=== PATIENT | male | born 1930 | race Caucasian/White ===

== ENCOUNTER 2017-05-31 19:56 | Observation (INO) | payer MEDICARE ==
[~2017-05-31] VITALS: Ht 182.9 cm; Wt 88.1 kg
[~2017-05-31 19:56] MED LIST: BISO5TAB2 PO; CARD4TAB2 PO; FELO5TAB PO; LISI40TA PO; MEVA40TA6 PO; PREV30CA36 PO; SPIR25TA PO
[2017-05-31 20:10] VITALS: BP 188/77; PULSE 76; RESP 22; TEMP 100; O2SAT 83
[2017-05-31 20:32] VITALS: BP 158/55; PULSE 74; RESP 16; O2SAT 98
[2017-05-31] MEDS ORDERED: B-122000 PO (20:32)
[2017-05-31] MEDS ORDERED: LISI40TA PO (20:32)
[2017-05-31] MEDS ORDERED: MELO-1 PO (20:32)
[2017-05-31] MEDS ORDERED: AMLO5 PO (20:32)
[2017-05-31] MEDS ORDERED: SPIR25TA PO (20:32)
[2017-05-31 20:35] VITALS: BP 158/55; PULSE 73; RESP 16; O2SAT 98
[2017-05-31 20:43] VITALS: TEMP 100.9
[2017-05-31 20:44] VITALS: O2SAT 98
[2017-05-31] MEDS ORDERED: SODIUM CHLOR 0.9% 1000 ML INJ 1,000 ML IV SCH (20:45)
[2017-05-31] MEDS ORDERED: PIPERACIL-TAZO 4.5 GM PREMIX 100 ML IV ONE (20:45)
--- NOTE | 2017-05-31 20:47 | PD ---
HPI Chief Complaint: Fever Time Seen by Provider: 20:40 Travel History International Travel<30 days: No Contact w/Intl Traveler<30days: No Traveled to known affect area: No History of Present Illness HPI 87-year-old male presents to the emergency department by private vehicle the care of family for evaluation of generalized weakness with fever since yesterday. Patient reports history of recurrent urinary tract infection. Patient reports some nausea. Patient's had no vomiting and only one episode of loose stool/diarrhea. No hematemesis no coffee-ground emesis no melena hematochezia. Patient states he's had subjective fever and chills and does not know the actual temperature elevation. Patient's had no cough or shortness of breath. Patient has had some rhinorrhea but suffers from environmental and seasonal allergies. Patient reports he does take Flonase on a regular basis. Patient takes no blood thinning agents. Patient is treated for dyslipidemia and hypertension. Patient has been able take his medications as prescribed. Patient has been taking fluids well without difficulty. Patient denies any abdominal pain. Patient is status post remote appendectomy no other abdominal surgeries. Patient denies prior history of diverticulosis diverticulitis colitis or other intestinal issues. Patient denies any flank pain. Patient has noted some mild dysuria but no urgency frequency urine output or hematuria. Patient rates his overall discomfort as 0/10 in intensity. 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) Diminished Hearing: No GERD: Yes Glaucoma: No Hepatitis: No Hiatal Hernia: No Hypertension: Yes Medical other: Yes (GERD; ARTHRITIS) Immunizations Current: No Thyroid Disease: No Tetanus Vaccination: Unknown Influenza Vaccination: No ?: Not Past Surgical History Abdominal Surgery: Yes (APPENDECTOMY) Appendectomy: Yes (30 YEARS AGO) Neurologic Surgery: Yes ("spinal fusion c8 and c9") Pacemaker: No Tonsillectomy: Yes Other Surgery: Yes ("lymph removed from r.[place]" "skin cancer removed on arms") Social History Alcohol Use: No Tobacco Use: No Substance Use: No Allergies-Medications (Allergen,Severity, Reaction): Coded Allergies: Asparagus (Verified Allergy, Intermediate, DIARRHEA, 05/31/17) Demerol (Verified Allergy, Unknown, "don't know,it was on my records", ) Reported Meds & Prescriptions Reported Meds & Active Scripts Active Reported B-12 (Cyanocobalamin) 2,000 Mcg Tab 2,000 Mcg PO DAILY Meloxicam 15 Mg Tab 15 Mg PO DAILY Norvasc (Amlodipine Besylate) 5 Mg Tab 5 Mg PO DAILY Spironolactone 25 Mg Tab 25 Mg PO DAILY Lisinopril 40 Mg Tab 40 Mg PO DAILY Review of Systems Except as stated in HPI: all other systems reviewed are Neg General / Constitutional: Positive: Fever (subjective), Chills HENT: Positive: Congestion Cardiovascular: No: Chest Pain or Discomfort Respiratory: No: Cough, Shortness of Breath, Wheezing Gastrointestinal: Positive: Nausea, Diarrhea, No: Vomiting, Abdominal Pain ( times one) Genitourinary: Positive: Dysuria, No: Urgency, Frequency, Hematuria, Flank Pain Musculoskeletal: Positive: Myalgias, Arthralgias Skin: No Rash Neurologic: Positive: Weakness, No: Dizziness, Syncope, Focal Abnormalities, Coordination Problem Psychiatric: No: Anxiety Endocrine: No: Heat Intolerance Hematologic/Lymphatic: No: Easy Bruising Physical Exam Narrative GENERAL: Well-developed well-nourished male in no acute distress no respiratory distress; triage temperature 100F/100.9F SKIN: Warm and dry. HEAD: Normocephalic. EYES: No scleral icterus. No injection or drainage. NECK: Supple, trachea midline. No JVD or lymphadenopathy. CARDIOVASCULAR: Regular rate and rhythm without murmurs, gallops, or rubs. RESPIRATORY: Breath sounds equal bilaterally. No accessory muscle use. GASTROINTESTINAL: Abdomen soft, non-tender, nondistended. MUSCULOSKELETAL: No cyanosis, or edema. BACK: Nontender without obvious deformity. No CVA tenderness. Data Data Last Documented VS Vital Signs Date Time Temp Pulse Resp B/P Pulse Ox O2 Delivery O2 Flow Rate FiO2 05/31/17 21:56 99.9 67 18 140/58 98 Room Air Orders Complete Blood Count With Diff (05/31/17 20:40) Comprehensive Metabolic Panel (05/31/17 20:40) Lactic Acid Sepsis Protocol (05/31/17 20:40) Lipase (05/31/17 20:40) Urinalysis - C+S If Indicated (05/31/17 20:40) Blood Culture (05/31/17 20:40) Chest, Single Ap (05/31/17 20:40) Blood Glucose (05/31/17 20:40) Ecg Monitoring (05/31/17 20:40) Iv Access Insert/Monitor (05/31/17 20:40) Oximetry (05/31/17 20:40) Oxygen Administration (05/31/17 20:40) Piperacil-Tazo 4.5 Gm Premix (Zosyn 4.5 (05/31/17 20:45) Influenzae A/B Antigen (05/31/17 20:40) Sodium Chlor 0.9% 1000 Ml Inj (Ns 1000 M (05/31/17 20:45) Acetaminophen (Tylenol) (05/31/17 21:00) Urine Culture (05/31/17 20:50) Place In Observation (05/31/17 ) Vital Signs (Adult) Q4H (05/31/17 21:56) Activity Oob With Assistance (05/31/17 21:56) Registered Private Duty Nurse / Telemetry .CONTINUOUS (05/31/17 21:56) Diet 1800 Ada Cons Carb (06/01/17 Breakfast) Diet Heart Healthy (06/01/17 Breakfast) Sodium Chloride 0.9% Flush (Ns Flush) (05/31/17 22:00) Sodium Chloride 0.9% Flush (Ns Flush) (06/01/17 09:00) Basic Metabolic Panel (Bmp) (06/01/17 06:00) Complete Blood Count With Diff (06/01/17 06:00) Pt Request For Service (05/31/17 21:56) Case Management Consult (05/31/17 21:56) Naloxone Inj (Narcan Inj) (05/31/17 22:00) Piperacil-Tazo 4.5 Gm Premix (Zosyn 4.5 (06/01/17 03:00) Admit Order (Ed Use Only) (05/31/17 ) ^ Saline Lock (05/31/17 22:04) Resp Oxygen Franklin C Titrat 1-4 L (05/31/17 ) Notify Dr: Other (05/31/17 22:04) Sodium Chloride 0.9% Flush (Ns Flush) (06/01/17 09:00) Sodium Chloride 0.9% Flush (Ns Flush) (05/31/17 22:15) Labs Laboratory Tests Test 05/31/17 05/31/17 20:50 21:00 White Blood Count 7.2 TH/MM3 Red Blood Count 4.40 MIL/MM3 Hemoglobin 13.6 GM/DL Hematocrit 39.7 % Mean Corpuscular Volume 90.0 FL Mean Corpuscular Hemoglobin 30.9 PG Mean Corpuscular Hemoglobin 34.3 % Concent Red Cell Distribution Width 13.6 % Platelet Count 182 TH/MM3 Mean Platelet Volume 8.2 FL Neutrophils (%) (Auto) 80.6 % Lymphocytes (%) (Auto) 12.9 % Monocytes (%) (Auto) 5.9 % Eosinophils (%) (Auto) 0.2 % Basophils (%) (Auto) 0.4 % Neutrophils # (Auto) 5.9 TH/MM3 Lymphocytes # (Auto) 0.9 TH/MM3 Monocytes # (Auto) 0.4 TH/MM3 Eosinophils # (Auto) 0.0 TH/MM3 Basophils # (Auto) 0.0 TH/MM3 CBC Comment DIFF FINAL Differential Comment Urine Color YELLOW Urine Turbidity SLIGHT Urine pH 5.5 Urine Specific [place] 1.016 Urine Protein NEG mg/dL Urine Glucose (UA) NEG mg/dL Urine Ketones NEG mg/dL Urine Occult Blood TRACE Urine Nitrite NEG Urine Bilirubin NEG Urine Leukocyte Esterase MOD Urine RBC 0-3 /hpf Urine WBC 25-49 /hpf Urine WBC Clumps MOD Urine Squamous Epithelial 0-5 /hpf Cells Microscopic Urinalysis Comment CATH-CULTURE IND Sodium Level 138 MEQ/L Potassium Level 4.8 MEQ/L Chloride Level 105 MEQ/L Carbon Dioxide Level 25.3 MEQ/L Anion Gap 8 MEQ/L Blood Urea Nitrogen 20 MG/DL Creatinine 1.40 MG/DL Estimat Glomerular Filtration 48 ML/MIN Rate Random Glucose 99 MG/DL Calcium Level 8.6 MG/DL Total Bilirubin 0.4 MG/DL Aspartate Amino Transf 18 U/L (AST/SGOT) Alanine Aminotransferase 14 U/L (ALT/SGPT) Alkaline Phosphatase 63 U/L Total Protein 7.5 GM/DL Albumin 3.4 GM/DL Lipase 152 U/L Lactic Acid Level 1.1 mmol/L [facility] Medical Decision Making Medical Screen Exam Complete: Yes Emergency Medical Condition: Yes Medical Record Reviewed: Yes Interpretation(s) Lactic acid: 1.1, not elevated Influenza A/B antigen negative Last Impressions Chest X-Ray 05/31/172039 Signed Impressions: Service Date/Time: Wednesday, May 31, 2017 20:44 - CONCLUSION: No acute disease. Wilfredo Fuchs MD CBC & BMP Diagram 05/31/17 20:50 Vital Signs Date Time Temp Pulse Resp B/P Pulse Ox O2 Delivery O2 Flow Rate FiO2 05/31/17 20:44 98 Room Air 05/31/17 20:44 98 Room Air 05/31/17 20:43 100.9 05/31/17 20:35 73 16 158/55 98 Room Air 05/31/17 20:35 Room Air 05/31/17 20:32 74 16 158/55 98 05/31/17 20:10 100.0 76 22 188/77 83 Differential Diagnosis Febrile illness, pneumonia, influenza, UTI, sepsis, SIRS Narrative Course IV access obtained specimens collected and sent for resulting patient administered Zosyn 4.5 g IV piggyback and IV fluids as well as acetaminophen Patient with respiratory rate greater than 20 temperature 100.9F. Administered acetaminophen prior to increasing further sources probably urinary tract infection patient will meet sepsis criteria and minimally Sirs criteria and; plan will be to put him for IV antibiotics due to complaint of worsening generalized weakness and fatigue. Patient's case discussed with on-call [facility] md will admit patient for IV antibiotics Sepsis Criteria SIRS Criteria (2 or more): Temp > 100.9 or < 96.8, RR > 20 or PaCO2 < 32 Sepsis Criteria (SIRS+source): Infect source susp/known (urine) Physician Communication Physician Communication discussed with DR Da Silva Diagnosis Primary Impression: UTI (urinary tract infection) Qualified Code: N39.0 - Urinary tract infection without hematuria, site unspecified Additional Impressions: SIRS (systemic inflammatory response syndrome) Sepsis Qualified Code: A41.9 - Sepsis, due to unspecified organism Admitting Information Admitting Physician Requests: Observation Gi Magana MD May 31, 2017 20:47
[2017-05-31] MEDS ORDERED: ACETAMINOPHEN 325 MG TAB PO ONE (21:00)
[2017-05-31 21:10] LABS: AUTOMATED NEUTROPHIL # 5.9 TH/MM3 (1.8-7.7); BASOPHIL % 0.4 % (0.0-2.0); EOSINOPHIL % 0.2 % (0.0-4.0); HEMATOCRIT 39.7 % (39.0-51.0); LYMPH % 12.9 % (9.0-44.0); LYMPHOCYTE # 0.9 TH/MM3 (1.0-4.8); MEAN CORPUSCULAR HEMOGLOBIN 30.9 PG (27.0-34.0); MEAN CORPUSCULAR HGB CONC 34.3 % (32.0-36.0); MONO % 5.9 % (0.0-8.0); NEUT % 80.6 % (16.0-70.0); PLATELET COUNT 182 TH/MM3 (150-450); RED CELL DISTRIBUTION WIDTH 13.6 % (11.6-17.2); WHITE BLOOD COUNT 7.2 TH/MM3 (4.0-11.0)
[2017-05-31 21:15] LABS: HEMO FLAGS DIFF FINAL
--- NOTE | 2017-05-31 21:21 | RADRPT ---
EXAM DATE/TIME: 05/31/2017 20:44 [facility] COMPARISON: No previous studies available for comparison. INDICATIONS : Fever, weakness. MEDICAL HISTORY : Hypertension. SURGICAL HISTORY : Lymph removed, right axilla. ENCOUNTER: Initial ACUITY: 1 day PAIN SCORE: 0/10 LOCATION: Bilateral chest FINDINGS: A single view of the chest demonstrates the lungs to be symmetrically aerated without evidence of mas s, infiltrate or effusion. The cardiomediastinal contours are unremarkable. Clips in the right axil la. Osseous structures are intact. CONCLUSION: No acute disease. Wilfredo Fuchs MD on May 31, 2017 at 21:19 Board Certified Radiologist. This report was verified electronically.
[2017-05-31 21:23] LABS: CHLORIDE 105 MEQ/L (98-107); POTASSIUM 4.8 MEQ/L (3.5-5.1); SODIUM (NA) 138 MEQ/L (136-145)
[2017-05-31 21:26] LABS: BLOOD, URINE TRACE (NEG); GLUCOSE,URINE NEG (NEG); KETONE, URINE NEG (NEG); NITRITE,URINE NEG (NEG); PH, URINE 5.5 (5.0-8.5)
[2017-05-31 21:27] LABS: ANION GAP 8 MEQ/L (5-15); BICARBONATE 25.3 MEQ/L (21.0-32.0); BLOOD UREA NITROGEN 20 MG/DL (7-18)
[2017-05-31 21:30] LABS: ALT (GPT) 14 U/L (12-78); AST (GOT) 18 U/L (15-37); GLOMERULAR FILTRATION RATE 48 ML/MIN (>89)
[2017-05-31 21:32] LABS: TOTAL BILIRUBIN ADULT 0.4 MG/DL (0.2-1.0)
[2017-05-31 21:33] LABS: ALKALINE PHOSPHATASE 63 U/L (45-117)
[2017-05-31 21:52] LABS: RBC, URINE 0-3 /hpf (0-3); SQUAMOUS EPITHELIAL CELL URINE 0-5 /hpf (0-5); URINE COLOR YELLOW (YELLW/STRAW)
[2017-05-31 21:53] LABS: COMMENT (UR) CATH-CULTURE IND; CULTURE IF INDICATED CATH CULTURE IND
[2017-05-31 21:56] VITALS: BP 140/58; PULSE 67; RESP 18; TEMP 99.9; O2SAT 98
[2017-05-31] MEDS ORDERED: NALOXONE HCL 0.4 MG/ML AMP IV PRN (22:00)
[2017-05-31] MEDS ORDERED: SODIUM CHLORIDE 0.9% FLUSH 10 ML FLUSH IVF PRN (22:15)
[2017-06-01] VITALS (16 sets, daily range): BP systolic 129–156; BP diastolic 58–88; PULSE 65–92; RESP 16–20; TEMP 96.6–99.6; O2SAT 96–99
[2017-06-01] MEDS: PIPERACIL-TAZO 4.5 GM PREMIX 100 ML IV SCH ×4 (02:44→20:54)
[2017-06-01 06:05] LABS: AUTOMATED NEUTROPHIL # 7.4 TH/MM3 (1.8-7.7); BASOPHIL % 0.3 % (0.0-2.0); EOSINOPHIL # 0.1 TH/MM3 (0-0.4); EOSINOPHIL % 0.6 % (0.0-4.0); HEMATOCRIT 39.8 % (39.0-51.0); HEMO FLAGS DIFF FINAL; LYMPH % 13.8 % (9.0-44.0); LYMPHOCYTE # 1.3 TH/MM3 (1.0-4.8); MEAN CELL VOLUME 91.2 FL (80.0-100.0); MEAN CORPUSCULAR HEMOGLOBIN 30.3 PG (27.0-34.0); MEAN CORPUSCULAR HGB CONC 33.2 % (32.0-36.0); MONO % 8.2 % (0.0-8.0); NEUT % 77.1 % (16.0-70.0); PLATELET COUNT 174 TH/MM3 (150-450); RED BLOOD COUNT 4.37 MIL/MM3 (4.50-5.90); RED CELL DISTRIBUTION WIDTH 14.4 % (11.6-17.2); WHITE BLOOD COUNT 9.6 TH/MM3 (4.0-11.0)
[2017-06-01 06:13] LABS: POTASSIUM 4.5 MEQ/L (3.5-5.1)
[2017-06-01 06:16] LABS: BICARBONATE 24.4 MEQ/L (21.0-32.0)
[2017-06-01] MEDS: SODIUM CHLORIDE 0.9% FLUSH 10 ML FLUSH IV FLUSH SCH ×2 (08:59→20:59)
[2017-06-01] MEDS ORDERED: SODIUM CHLORIDE 0.9% FLUSH 10 ML FLUSH IV FLUSH SCH (09:00)
--- NOTE | 2017-06-01 11:13 | RADRPT ---
EXAM DATE/TIME: 06/01/2017 09:35 [facility] COMPARISON: No previous studies available for comparison. INDICATIONS : Obstruction. MEDICAL HISTORY : Hypercholesterolemia. Hypertension. Arthritis. GERD. Diabetes. Skin cancer. SURGICAL HISTORY : Tonsillectomy. Appendectomy. Left cataract surgery. Spinal fusion C8-C9. Lymph node removed from ri t axilla. Skin cancer removed on arms. ENCOUNTER: Initial ACUITY: 1 day PAIN SCORE: 0/10 LOCATION: Bilateral flank MEASUREMENTS: RIGHT KIDNEY: 9.9 x 5.6 x 5.0 cm LEFT KIDNEY: 11.0 x 4.8 x 5.2 cm FINDINGS: RIGHT KIDNEY: Renal cortex is normal in thickness with a focal 10 x 7.5 x 7.2 mm echogenic foci in the lower pole t hat does not shadow and may represent a small angiomyolipoma or benign fatty infiltration. No hydron ephrosis, stone, or mass. LEFT KIDNEY: Renal cortex is normal in thickness and echotexture. No hydronephrosis, stone, or mass. BLADDER: Very trabeculated appearance of the inferior bladder wall possibly secondary to some partial outlet o bstruction. The prostate is prominent measuring 6.7 cm in diameter. CONCLUSION: 1. A 1 cm echogenic foci in the cortex of the lower pole the right kidney is overtly benign and may r epresent a small angiomyolipoma or perinephric fatty herniation into the cortex. Kidneys are otherwis e sonographically intact. 2. Very trabeculated appearance of the inferior wall of the urinary bladder. This may represent parti al outlet obstruction due to the prominent prostate. Srini Hamilton MD on June 01, 2017 at 10:58 Board Certified Radiologist. This report was verified electronically.
[2017-06-01] MEDS ORDERED: TAMSULOSIN HCL 0.4 MG CAP PO ONE (14:00)
--- NOTE | 2017-06-01 15:14 | HHI.HP ---
HPI Service [facility] Primary Care Physician David Mar MD Admission Diagnosis pyuria; sirs/sepsis Diagnoses: Travel History International Travel<30 Days: No Contact w/Intl Traveler <30 Da: No Traveled to Known Affected Are: No History of Present Illness 87-year-old male with a history of hypertension, prediabetes, hyperlipidemia, GERD, who presents with a three-day history of dysuria, 2 day history of unmeasured fevers. Patient denies any chest pain, shortness of breath, nausea, vomiting. Patient denies any history of TURP in the past, however says he does have difficulty urinating at baseline. He denies any back pain. Review of Systems Performed and negative except for history of present illness and past medical history. Past Family Social History Past Medical History Hyperlipidemia Prediabetes. GERD Arthritis Hypertension Past Surgical History Appendectomy Spinal fusion CVA, C9. Cataract surgery Lymph node biopsy. Skin skin cancer removal. Reported Medications Reported Meds & Active Scripts Active Reported B-12 (Cyanocobalamin) 2,000 Mcg Tab 2,000 Mcg PO DAILY Meloxicam 15 Mg Tab 15 Mg PO DAILY Norvasc (Amlodipine Besylate) 5 Mg Tab 5 Mg PO DAILY Spironolactone 25 Mg Tab 25 Mg PO DAILY Lisinopril 40 Mg Tab 40 Mg PO DAILY Allergies: Coded Allergies: Asparagus (Verified Allergy, Intermediate, DIARRHEA, 05/31/17) Demerol (Verified Allergy, Unknown, "don't know,it was on my records", ) Family History Reviewed with patient and found to be currently noncontributory. Social History Nonsmoker. Nondrinker. Denies illicit drugs. Physical Exam Vital Signs Vital Signs Date Time Temp Pulse Resp B/P Pulse Ox O2 Delivery O2 Flow Rate FiO2 06/01/17 13:35 77 18 151/73 98 06/01/17 13:30 96.9 70 20 144/75 98 06/01/17 11:18 Room Air 06/01/17 11:17 66 20 139/59 98 Room Air 06/01/17 07:10 98 Room Air 06/01/17 07:10 98 Room Air 06/01/17 07:07 99.6 71 18 135/58 99 Room Air 06/01/17 06:09 92 16 156/65 96 Room Air 06/01/17 05:34 99.0 98 Room Air 06/01/17 04:45 72 18 156/65 98 Room Air 06/01/17 03:07 98.9 74 20 154/66 99 Room Air 06/01/17 02:42 96 21 06/01/17 01:55 79 18 96 Room Air 06/01/17 00:40 85 18 142/74 98 Room Air 05/31/17 21:56 99.9 67 18 140/58 98 Room Air 05/31/17 20:44 98 Room Air 05/31/17 20:44 98 Room Air 05/31/17 20:43 100.9 05/31/17 20:35 73 16 158/55 98 Room Air 05/31/17 20:35 Room Air 05/31/17 20:32 74 16 158/55 98 05/31/17 20:10 100.0 76 22 188/77 83 Physical Exam GENERAL: This is a well-nourished, well-developed patient, in no apparent distress. SKIN: No rashes, ecchymoses or lesions. Cool and dry. HEAD: Atraumatic. Normocephalic. No temporal or scalp tenderness. EYES: Pupils equal round and reactive. Extraocular motions intact. No scleral icterus. No injection or drainage. ENT: Nose without bleeding, purulent drainage or septal hematoma. Throat without erythema, tonsillar hypertrophy or exudate. Uvula midline. Airway patent. NECK: Trachea midline. No JVD or lymphadenopathy. Supple, nontender, no meningeal signs. CARDIOVASCULAR: Regular rate and rhythm without murmurs, gallops, or rubs. RESPIRATORY: Clear to auscultation. Breath sounds equal bilaterally. No wheezes , rales, or rhonchi. GASTROINTESTINAL: Abdomen soft, non-tender, nondistended. No hepato-splenomegaly , or palpable masses. No guarding. MUSCULOSKELETAL: Extremities without clubbing, cyanosis, or edema. No joint tenderness, effusion, or edema noted. No calf tenderness. Negative Homans sign bilaterally. NEUROLOGICAL: Awake and alert. Cranial nerves II through XII intact. Motor and sensory grossly within normal limits. Five out of 5 muscle strength in all muscle groups. Normal speech. Laboratory Laboratory Tests Test 05/31/17 05/31/17 06/01/17 20:50 21:00 05:55 White Blood Count 7.2 9.6 Red Blood Count 4.40 4.37 Hemoglobin 13.6 13.2 Hematocrit 39.7 39.8 Mean Corpuscular Volume 90.0 91.2 Mean Corpuscular Hemoglobin 30.9 30.3 Mean Corpuscular Hemoglobin 34.3 33.2 Concent Red Cell Distribution Width 13.6 14.4 Platelet Count 182 174 Mean Platelet Volume 8.2 8.0 Neutrophils (%) (Auto) 80.6 77.1 Lymphocytes (%) (Auto) 12.9 13.8 Monocytes (%) (Auto) 5.9 8.2 Eosinophils (%) (Auto) 0.2 0.6 Basophils (%) (Auto) 0.4 0.3 Neutrophils # (Auto) 5.9 7.4 Lymphocytes # (Auto) 0.9 1.3 Monocytes # (Auto) 0.4 0.8 Eosinophils # (Auto) 0.0 0.1 Basophils # (Auto) 0.0 0.0 CBC Comment DIFF FINAL DIFF FINAL Differential Comment Urine Color YELLOW Urine Turbidity SLIGHT Urine pH 5.5 Urine Specific [place] 1.016 Urine Protein NEG Urine Glucose (UA) NEG Urine Ketones NEG Urine Occult Blood TRACE Urine Nitrite NEG Urine Bilirubin NEG Urine Leukocyte Esterase MOD Urine RBC 0-3 Urine WBC 25-49 Urine WBC Clumps MOD Urine Squamous Epithelial 0-5 Cells Microscopic Urinalysis Comment CATH-CULTURE IND Sodium Level 138 139 Potassium Level 4.8 4.5 Chloride Level 105 105 Carbon Dioxide Level 25.3 24.4 Anion Gap 8 10 Blood Urea Nitrogen 20 20 Creatinine 1.40 1.60 Estimat Glomerular Filtration 48 41 Rate Random Glucose 99 110 Calcium Level 8.6 8.2 Total Bilirubin 0.4 Aspartate Amino Transf 18 (AST/SGOT) Alanine Aminotransferase 14 (ALT/SGPT) Alkaline Phosphatase 63 Total Protein 7.5 Albumin 3.4 Lipase 152 Lactic Acid Level 1.1 Date/Time Procedure Status Source Growth 05/31/17 21:00 Influenza Types A,B Antigen (DANISH) - Final Complete Nasal Washing NEGATIVE FOR FLU A AND B ANTIGEN.... 05/31/17 20:55 Aerobic Blood Culture - Preliminary Resulted Blood Peripheral NO GROWTH IN 1 DAY 05/31/17 20:55 Anaerobic Blood Culture - Preliminary Resulted Blood Peripheral NO GROWTH IN 1 DAY 05/31/17 20:50 Urine Culture Received Urine Catheterized Urine Pending Result Diagram: 06/01/1755406/01/17554 Assessment and Plan Assessment and Plan //Sepsis on admission with tachycardia, tachypnea, temperature 100.9. UTI //Complicated UTI. Acute. -Urinalysis with white blood cell clumps. -Renal ultrasound with bladder trabeculation. -Continue antibiotics for treatment of UTI. -Follow up cultures -Add tamsulosin. -Consult urology. /Hypertension. Systolic blood pressure elevated in the 180s on admission. -Holding medications as below due to acute kidney injury. Should be improved with tamsulosin addition. //Possible acute kidney injury. Creatinine 1.6. Unknown baseline . Could be obstructive. -Hold LEANNE inhibitor and diuretic. Restart as necessary. Hold NSAIDs. -Continue to monitor. //Prophylaxis. SCDs Discussed Condition With Patient, nurse Physician Certification 2 Midnight Certification Type: Admission for Inpatient Services Order for Inpatient Services The services are ordered in accordance with Medicare regulations or non- Medicare payer requirements, as applicable. In the case of services not specified as inpatient-only, they are appropriately provided as inpatient services in accordance with the 2-midnight benchmark. Estimated LOS (days): 2 days is the estimated time the patient will need to remain in the hospital, assuming treatment plan goals are met and no additional complications. Post-Hospital Plan: Not yet determined Anurag Monsivais MD Jun 01, 2017 15:14
[2017-06-02] VITALS (8 sets, daily range): BP systolic 119–162; BP diastolic 57–83; PULSE 58–75; RESP 18–20; TEMP 97–98.5; O2SAT 98–100
[2017-06-02] MEDS: PIPERACIL-TAZO 4.5 GM PREMIX 100 ML IV SCH ×2 (03:22→09:00)
[2017-06-02] MEDS: TAMSULOSIN HCL 0.4 MG CAP PO SCH (09:29)
[2017-06-02] MEDS: SODIUM CHLORIDE 0.9% FLUSH 10 ML FLUSH IV FLUSH SCH ×2 (09:29→20:56)
[2017-06-02] MEDS: PIPERACIL-TAZO 2.25 GM PREMIX 50 ML IV SCH ×3 (11:10→23:16)
[2017-06-02 11:29] LABS: AUTOMATED NEUTROPHIL # 5.8 TH/MM3 (1.8-7.7); BASOPHIL % 0.2 % (0.0-2.0); EOSINOPHIL % 0.2 % (0.0-4.0); HEMATOCRIT 37.1 % (39.0-51.0); HEMO FLAGS DIFF FINAL; LYMPH % 13.1 % (9.0-44.0); MEAN CELL VOLUME 89.1 FL (80.0-100.0); MEAN CORPUSCULAR HEMOGLOBIN 29.9 PG (27.0-34.0); MEAN CORPUSCULAR HGB CONC 33.5 % (32.0-36.0); MONO % 8.7 % (0.0-8.0); NEUT % 77.8 % (16.0-70.0); PLATELET COUNT 149 TH/MM3 (150-450); RED BLOOD COUNT 4.17 MIL/MM3 (4.50-5.90); RED CELL DISTRIBUTION WIDTH 13.5 % (11.6-17.2); WHITE BLOOD COUNT 7.5 TH/MM3 (4.0-11.0)
[2017-06-02 11:32] LABS: CHLORIDE 105 MEQ/L (98-107); POTASSIUM 4.2 MEQ/L (3.5-5.1); SODIUM (NA) 138 MEQ/L (136-145)
[2017-06-02 12:06] LABS: ALKALINE PHOSPHATASE 49 U/L (45-117); ALT (GPT) 15 U/L (12-78); ANION GAP 7 MEQ/L (5-15); AST (GOT) 26 U/L (15-37); BICARBONATE 25.6 MEQ/L (21.0-32.0); BLOOD UREA NITROGEN 20 MG/DL (7-18); GLOMERULAR FILTRATION RATE 44 ML/MIN (>89); TOTAL BILIRUBIN ADULT 0.4 MG/DL (0.2-1.0)
--- NOTE | 2017-06-02 12:09 | PD.CONS ---
[facility] Service Urology Consult Requested By Dr. Monsivais Primary Care Physician David Mar MD Diagnosis: History of Present Illness 87-year-old gentleman with history obstructing BPH who is presently under the care of Dr. Akins. Patient presented to the emergency room with a three-day history of dysuria and low-grade fevers. Patient was admitted for management of urinary tract infection and a urology consult was placed. At the time of consultation the patient states that he continues to have some dysuria but the symptoms have been improving. He reports that he has had extensive urologic workup by Dr. Akins that has included cystoscopic evaluation. He has been treated with Rapaflo and this was recently changed over to Flomax. He reports that overall his voiding pattern has gradually been improving while taking the Flomax. He denies a history of gross hematuria. Review of Systems Constitutional: COMPLAINS OF: Fever, DENIES: Chills Gastrointestinal: DENIES: Abdominal pain Genitourinary: DENIES: Hematuria Except as stated in HPI: all other systems reviewed are Neg Past Family Social History Past Medical History Obstructing BPH Hyperlipidemia GERD Hypertension Arthritis Prediabetes Past Surgical History Status post appendectomy Status post spinal fusion procedure Status post cataract surgery Reported Medications Refer to EMR Allergies: Coded Allergies: Asparagus (Verified Allergy, Intermediate, DIARRHEA, 05/31/17) Demerol (Verified Allergy, Unknown, "don't know,it was on my records", ) Active Ordered Medications Refer to EMR Family History Reviewed and noncontributory Social History Denies tobacco, alcohol or intravenous drug abuse history Physical Exam Vital Signs Date Time Temp Pulse Resp B/P Pulse Ox O2 Delivery O2 Flow Rate FiO2 06/02/17 08:00 72 06/02/17 08:00 97.0 75 20 162/83 99 06/02/17 04:00 98.1 67 18 138/67 99 06/02/17 00:00 98.5 66 18 119/57 98 06/01/17 20:41 97 21 06/01/17 20:00 97.5 72 18 153/69 99 06/01/17 20:00 71 06/01/17 16:30 98 21 06/01/17 16:00 98.3 68 20 154/65 98 06/01/17 13:35 77 18 151/73 98 06/01/17 13:30 96.9 70 20 144/75 98 Physical Exam GENERAL: This is a well-nourished, well-developed patient, in no apparent distress. SKIN: No rashes, ecchymoses or lesions. Cool and dry. HEAD: Atraumatic. Normocephalic. No temporal or scalp tenderness. EYES: Pupils equal round and reactive. Extraocular motions intact. No scleral icterus. No injection or drainage. ENT: Nose without bleeding, purulent drainage or septal hematoma. Throat without erythema, tonsillar hypertrophy or exudate. Uvula midline. Airway patent. NECK: Trachea midline. No JVD or lymphadenopathy. Supple, nontender, no meningeal signs. CARDIOVASCULAR: Regular rate and rhythm without murmurs, gallops, or rubs. RESPIRATORY: Clear to auscultation. Breath sounds equal bilaterally. No wheezes , rales, or rhonchi. GASTROINTESTINAL: Abdomen soft, non-tender, nondistended. No hepato-splenomegaly , or palpable masses. No guarding. GENITOURINARY: No CVA tenderness. Abdomen soft, nondistended, nontender. Bladder not distended. MUSCULOSKELETAL: Extremities without clubbing, cyanosis, or edema. No joint tenderness, effusion, or edema noted. No calf tenderness. Negative Homans sign bilaterally. NEUROLOGICAL: Awake and alert. Cranial nerves II through XII intact. Motor and sensory grossly within normal limits. Five out of 5 muscle strength in all muscle groups. Normal speech. Lab results reviewed: Yes Laboratory Tests Test 06/02/17 10:30 White Blood Count 7.5 Red Blood Count 4.17 Hemoglobin 12.4 Hematocrit 37.1 Mean Corpuscular Volume 89.1 Mean Corpuscular Hemoglobin 29.9 Mean Corpuscular Hemoglobin 33.5 Concent Red Cell Distribution Width 13.5 Platelet Count 149 Mean Platelet Volume 8.0 Neutrophils (%) (Auto) 77.8 Lymphocytes (%) (Auto) 13.1 Monocytes (%) (Auto) 8.7 Eosinophils (%) (Auto) 0.2 Basophils (%) (Auto) 0.2 Neutrophils # (Auto) 5.8 Lymphocytes # (Auto) 1.0 Monocytes # (Auto) 0.7 Eosinophils # (Auto) 0.0 Basophils # (Auto) 0.0 CBC Comment DIFF FINAL Differential Comment Sodium Level 138 Potassium Level 4.2 Chloride Level 105 Carbon Dioxide Level 25.6 Anion Gap 7 Blood Urea Nitrogen 20 Creatinine 1.50 Estimat Glomerular Filtration 44 Rate Random Glucose 137 Calcium Level 8.3 Total Bilirubin 0.4 Aspartate Amino Transf 26 (AST/SGOT) Alanine Aminotransferase 15 (ALT/SGPT) Alkaline Phosphatase 49 Total Protein 6.4 Albumin 2.8 Date/Time Procedure Status Source Growth 05/31/17 21:00 Influenza Types A,B Antigen (DANISH) - Final Complete Nasal Washing NEGATIVE FOR FLU A AND B ANTIGEN.... 05/31/17 20:55 Aerobic Blood Culture - Preliminary Resulted Blood Peripheral NO GROWTH IN 2 DAYS 05/31/17 20:55 Anaerobic Blood Culture - Preliminary Resulted Blood Peripheral NO GROWTH IN 2 DAYS 05/31/17 20:50 Urine Culture Received Urine Catheterized Urine Pending Result Diagram: 06/02/17 1030 06/02/17 1030 Personally reviewed images: Yes Imaging Last Impressions Renal Ultrasound 06/01/17 0000 Signed Impressions: Service Date/Time: Thursday, June 01, 2017 09:35 - CONCLUSION: 1. A 1 cm echogenic foci in the cortex of the lower pole the right kidney is overtly benign and may represent a small angiomyolipoma or perinephric fatty herniation into the cortex. Kidneys are otherwise sonographically intact. 2. Very trabeculated appearance of the inferior wall of the urinary bladder. This may represent partial outlet obstruction due to the prominent prostate. Srini Hamilton MD Chest X-Ray 05/31/172039 Signed Impressions: Service Date/Time: Wednesday, May 31, 2017 20:44 - CONCLUSION: No acute disease. Wilfredo Fuchs MD Assessment and Plan Assessment and Plan Urologic impression: #1 dysuria related to urinary tract infection #2 urinary tract infection related to obstructing BPH Recommendations: #1 agree with present antibiotic management #2 continue with Flomax 0.4 mg by mouth daily #3 patient advised to follow up with his established urologist Dr. Akins after hospital discharge Domenico Tovar MD Jun 02, 2017 12:09
--- NOTE | 2017-06-02 18:30 | HHI.PR ---
Subjective Remarks Patient seen this morning. He says he is feeling better. Reports that dysuria seems to be improving. Denies any chest pain or shortness of breath. Objective Vital Signs Date Time Temp Pulse Resp B/P Pulse Ox O2 Delivery O2 Flow Rate FiO2 06/02/17 16:00 98.4 68 20 132/64 100 06/02/17 12:00 97.4 62 18 137/72 98 06/02/17 09:00 98 21 06/02/17 08:00 72 06/02/17 08:00 97.0 75 20 162/83 99 06/02/17 04:00 98.1 67 18 138/67 99 06/02/17 00:00 98.5 66 18 119/57 98 06/01/17 20:41 97 21 06/01/17 20:00 97.5 72 18 153/69 99 06/01/17 20:00 71 I/O 06/01/17 06/01/17 06/01/17 06/02/17 06/02/17 06/02/17 06:59 14:59 22:59 06:59 14:59 22:59 Intake Total 1200 ml 580 ml 180 ml 240 ml 750 ml Output Total 800 ml 200 ml 975 ml Balance 400 ml 580 ml 180 ml 40 ml -225 ml Intake Oral 480 ml 180 ml 240 ml 750 ml IV Total 1200 ml 100 ml Output Urine Total 800 ml 200 ml 975 ml # Voids 4 4 1 # Bowel Movements 2 0 0 0 Result Diagram: 06/02/17 1030 06/02/17 1030 Objective Remarks GENERAL: patient sitting up in bed. Appears comfortable. SKIN: Warm and dry. HEAD: Normocephalic. EYES: No scleral icterus. No injection or drainage. NECK: Supple, trachea midline. No JVD. CARDIOVASCULAR: Regular rate and rhythm without murmurs, gallops, or rubs. RESPIRATORY: Breath sounds equal bilaterally. No accessory muscle use. GASTROINTESTINAL: Abdomen soft, non-tender, nondistended. MUSCULOSKELETAL: No cyanosis, or edema. BACK: Nontender without obvious deformity. No CVA tenderness. A/P Assessment and Plan === 06/02/17==== Patient doing well on Flomax. Gram-positive rods on urine culture. Continue broad-spectrum antibiotic. Follow-up for sensitivities. //Sepsis on admission with tachycardia, tachypnea, temperature 100.9. UTI //Complicated UTI. Acute. -Urinalysis with white blood cell clumps. -Renal ultrasound with bladder trabeculation. -Continue antibiotics for treatment of UTI. -Follow up cultures -cont tamsulosin. -Appreciate urology consultation. Continue Flomax.. Gram-negative rods on urine culture. Follow-up cultures. Continue broad-spectrum antibiotic. /Hypertension. Systolic blood pressure elevated in the 180s on admission. -Holding medications as below due to acute kidney injury. Should be improved with tamsulosin addition. //Possible acute kidney injury. Creatinine 1.6. Unknown baseline . Could be obstructive. -Continue to Hold LEANNE inhibitor and diuretic. Restart as necessary. Continue to Hold NSAIDs. -Creatinine 1.5. Relatively stable. Continue to monitor //Prophylaxis. SCDs Discharge Planning discharge in 1-2 days when sensitivities returned. Anurag Monsivais MD Jun 02, 2017 18:30
[2017-06-02] MEDS: SODIUM CHLORIDE 0.9% FLUSH 10 ML FLUSH IV FLUSH PRN (23:16)
[2017-06-03] VITALS: BP 128/65; PULSE 58; RESP 18; TEMP 97.1; O2SAT 99
[2017-06-03 04:00] VITALS: BP 120/68; PULSE 64; RESP 18; TEMP 98.2; O2SAT 99
[2017-06-03] MEDS: PIPERACIL-TAZO 2.25 GM PREMIX 50 ML IV SCH ×2 (05:04→10:09)
[2017-06-03] MEDS: SODIUM CHLORIDE 0.9% FLUSH 10 ML FLUSH IV FLUSH PRN (05:04)
[2017-06-03 08:00] VITALS: PULSE 60
[2017-06-03] MEDS: TAMSULOSIN HCL 0.4 MG CAP PO SCH (08:25)
[2017-06-03] MEDS: SODIUM CHLORIDE 0.9% FLUSH 10 ML FLUSH IV FLUSH SCH (08:26)
[2017-06-03 10:11] VITALS: BP 138/65; PULSE 69; RESP 15; TEMP 96.6; O2SAT 100
[2017-06-03] MEDS ORDERED: LEVO500T8 PO (12:49)
--- NOTE | 2017-06-03 12:50 | HHI.DCPOC ---
Discharge Care Plan Diagnosis: (1) UTI (urinary tract infection) Goals to Promote Your Health * To prevent worsening of your condition and complications * To maintain your health at the optimal level Directions to Meet Your Goals Take your medications as prescribed Follow your dietary instruction Follow activity as directed Keep your appointments as scheduled Take your immunizations and boosters as scheduled If your symptoms worsen call your PCP, if no PCP go to Urgent Care Center or Emergency Room Smoking is Dangerous to Your Health. Avoid second hand smoke Call the 24-hour hour crisis hotline for domestic abuse at Keyanna Montanez MD Jun 03, 2017 12:49
[2017-06-03] MEDS ORDERED: TAMS5CAP PO (12:53)
--- NOTE | 2017-06-03 12:54 | HHI.DS ---
[facility] Discharge Summary Admission Date May 31, 2017 at 22:05 Discharge Date: Jun 03, 2017 Admitting Diagnosis pyuria; sirs/sepsis (1) UTI (urinary tract infection) ICD Code: N39.0 (2) Sepsis ICD Code: A41.9 Procedures None Brief History - From Admission 87-year-old male with a history of hypertension, prediabetes, hyperlipidemia, GERD, who presents with a three-day history of dysuria, 2 day history of unmeasured fevers. Patient denies any chest pain, shortness of breath, nausea, vomiting. Patient denies any history of TURP in the past, however says he does have difficulty urinating at baseline. He denies any back pain. CBC/BMP: 06/02/17 1030 06/02/17 1030 Significant Findings Laboratory Tests Test 05/31/17 06/01/17 06/02/17 20:50 05:55 10:30 Blood Urea Nitrogen 20 MG/DL (7-18) 20 MG/DL (7-18) 20 MG/DL (7-18) Creatinine 1.40 MG/DL 1.60 MG/DL 1.50 MG/DL (0.60-1.30) (0.60-1.30) (0.60-1.30) Estimat Glomerular Filtration 48 ML/MIN (>89) 41 ML/MIN (>89) 44 ML/MIN (>89) Rate Red Blood Count 4.40 MIL/MM3 4.37 MIL/MM3 4.17 MIL/MM3 (4.50-5.90) (4.50-5.90) (4.50-5.90) Neutrophils (%) (Auto) 80.6 % 77.1 % 77.8 % (16.0-70.0) (16.0-70.0) (16.0-70.0) Lymphocytes # (Auto) 0.9 TH/MM3 (1.0-4.8) Urine Occult Blood TRACE (NEG) Urine Leukocyte Esterase MOD (NEG) Urine WBC 25-49 /hpf (0-5) Urine WBC Clumps MOD (NONE) Monocytes (%) (Auto) 8.2 % (0.0-8.0) 8.7 % (0.0-8.0) Random Glucose 110 MG/DL 137 MG/DL (74-106) (74-106) Calcium Level 8.2 MG/DL 8.3 MG/DL (8.5-10.1) (8.5-10.1) Hemoglobin 12.4 GM/DL (13.0-17.0) Hematocrit 37.1 % (39.0-51.0) Platelet Count 149 TH/MM3 (150-450) Albumin 2.8 GM/DL (3.4-5.0) Imaging Last Impressions Renal Ultrasound 06/01/17 0000 Signed Impressions: Service Date/Time: Thursday, June 01, 2017 09:35 - CONCLUSION: 1. A 1 cm echogenic foci in the cortex of the lower pole the right kidney is overtly benign and may represent a small angiomyolipoma or perinephric fatty herniation into the cortex. Kidneys are otherwise sonographically intact. 2. Very trabeculated appearance of the inferior wall of the urinary bladder. This may represent partial outlet obstruction due to the prominent prostate. Srini Hamilton MD Chest X-Ray 05/31/172039 Signed Impressions: Service Date/Time: Wednesday, May 31, 2017 20:44 - CONCLUSION: No acute disease. Wilfredo Fuchs MD PE at Discharge GENERAL: This is a well-nourished, well-developed patient, in no apparent distress. CARDIOVASCULAR: Regular rate and rhythm without murmurs, gallops, or rubs. RESPIRATORY: Clear to auscultation. Breath sounds equal bilaterally. No wheezes , rales, or rhonchi. GASTROINTESTINAL: Abdomen soft, non-tender, nondistended. Normal active bowel sounds MUSCULOSKELETAL: Extremities without clubbing, cyanosis, or edema. NEURO: Alert & Oriented x4 to person, place, time, situation. Moves all ext x4 Pt update on day of discharge Patient seen today in follow-up for her UTI with sepsis. Cultures are positive for pseudomonal UTI. Patient will continue with antibiotics orally and follow up with urology. Discharge plans discussed with patient, nursing team and spouse at bedside. Hospital Course This patient's 87-year-old gentleman with known history of benign prostatic hyperplasia on Flomax. Patient did develop urinary symptoms and sepsis symptoms and was admitted to the hospital for UTI with sepsis. Cultures did show pseudomonal UTI. Patient did well with IV antibiotics and was transitioned to oral. He was seen also by urology recommended antibiotics with outpatient follow-up. Pt Condition on Discharge: Good Discharge Disposition: Discharge Home Discharge Time: <= 30 minutes Discharge Instructions DIET: Follow Instructions for: Diabetic Diet Activities you can perform: Regular-No Restrictions Follow up Referrals: Urology - 2 Weeks with elijah New Medications: Levofloxacin (Levofloxacin) 500 Mg Tablet 500 MG PO DAILY Infection #14 Ref 0 TAB Tamsulosin (Flomax) 0.4 Mg Cap 0.4 MG PO DAILY urine #31 CAP Continued Medications: Amlodipine (Norvasc) 5 Mg Tab 5 MG PO DAILY Blood Pressure Management #30 Ref 0 TAB Cyanocobalamin (B-12) 2,000 Mcg Tab 2000 MCG PO DAILY Nutritional Supplement #1 Ref 0 BOTTLE Lisinopril (Lisinopril) 40 Mg Tab 40 MG PO DAILY Blood Pressure Management #30 Ref 0 TAB Meloxicam (Meloxicam) 15 Mg Tab 15 MG PO DAILY Arthritis Pain #30 Ref 0 TAB Spironolactone (Spironolactone) 25 Mg Tab 25 MG PO DAILY #30 Ref 0 TAB Keyanna Montanez MD Jun 03, 2017 12:54
== END 2017-06-03 13:10 | disposition home or self-care (01) ==
LOC: PHED 19:56 → PHEDA 22:05 → PHEDH 06-01 04:22 → PH3B 06-01 13:36
PROVIDERS: ADMIT Hospitalist; ATTEND Hospitalist
DX: A41.9 Sepsis, unspecified organism (principal); N39.0 Urinary tract infection, site not specified; B96.5 Pseudomonas (aeruginosa) (mallei) (pseudomallei) as the cause of diseases classified elsewhere; R00.0 Tachycardia, unspecified; R06.82 Tachypnea, not elsewhere classified; N32.89 Other specified disorders of bladder; N17.9 Acute kidney failure, unspecified; I10 Essential (primary) hypertension; E78.5 Hyperlipidemia, unspecified; E78.00 Pure hypercholesterolemia, unspecified; J30.2 Other seasonal allergic rhinitis; R73.03 Prediabetes; K21.9 Gastro-esophageal reflux disease without esophagitis; M19.90 Unspecified osteoarthritis, unspecified site; Z98.1 Arthrodesis status; Z85.828 Personal history of other malignant neoplasm of skin; Z79.899 Other long term (current) drug therapy; N40.1 Benign prostatic hyperplasia with lower urinary tract symptoms
CPT/HCPCS: 71010; 76775; 80048; 80053; 81001; 83605; 83690; 85025; 87040; 87077; 87086; 87186; 87804; 96365; 97162; 99285; G0378; G8987; G8988; J2543; J7030

== ENCOUNTER 2017-09-15 14:07 | Emergency (ER) | payer MEDICARE ==
[~2017-09-15] VITALS: Ht 180.3 cm; Wt 90.0 kg
[~2017-09-15 14:07] MED LIST changes: +AMLO5 PO; +B-122000 PO; -BISO5TAB2 PO; -CARD4TAB2 PO; -FELO5TAB PO; +LEVO500T8 PO; +MELO15TA20 PO; -MEVA40TA6 PO; -PREV30CA36 PO; +TAMS5CAP PO
[2017-09-15 14:08] VITALS: BP 186/80; PULSE 85; RESP 18; TEMP 97.4; O2SAT 100
--- NOTE | 2017-09-15 15:50 | PD ---
HPI Chief Complaint: Musculoskeletal Complaint Time Seen by Provider: 15:40 Travel History International Travel<30 days: No Contact w/Intl Traveler<30days: No Traveled to known affect area: No History of Present Illness HPI 87-year-old male presents for evaluation of lower back pain. Symptoms started last week. The pain is an aching pain that is reproduced with rotation at the torso and with flexion at the torso. Seen by his primary care physician yesterday with the recommendation that he take Aleve and apply warm and cold compresses. Symptoms have persisted which prompted evaluation. Denies any radicular symptoms, lower extremity weakness, bowel or bladder incontinence, saddle anesthesia, abdominal pain, vomiting, fevers or chills. He does report that he does yard work and it is possible that he injured it doing yardwork but he does not remember specific mechanism of injury. He has no other complaints. 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) Diminished Hearing: No GERD: Yes Glaucoma: No Hepatitis: No Hiatal Hernia: No Hypertension: Yes Respiratory: No Immunizations Current: No Thyroid Disease: No Past Surgical History Abdominal Surgery: Yes (APPENDECTOMY) Appendectomy: Yes (30 YEARS AGO) Neurologic Surgery: Yes ("spinal fusion c8 and c9") Pacemaker: No Tonsillectomy: Yes Other Surgery: Yes ("lymph removed from r.[place]" "skin cancer removed on arms") Social History Alcohol Use: No Tobacco Use: No Substance Use: No Allergies-Medications (Allergen,Severity, Reaction): Coded Allergies: asparagus (Unverified Allergy, Intermediate, DIARRHEA, 09/15/17) meperidine (Unverified Allergy, Unknown, "don't know,it was on my records ", 09/15/17) Reported Meds & Prescriptions Reported Meds & Active Scripts Active Lidocaine Patch 12 HR (Lidocaine) 5 % Patch 1 Patch TOPICAL DAILY PRN Remove patch after 12 hours Tramadol (Tramadol HCl) 50 Mg Tab 50 Mg PO Q6H PRN Flomax (Tamsulosin HCl) 0.4 Mg Cap 0.4 Mg PO DAILY Reported [Pen Vk] Aleve Arthritis (Naproxen Sodium) 220 Mg Tab 220 Mg PO BID Aspirin Low Dose (Aspirin) 81 Mg Chew 81 Mg CHEW DAILY B-12 (Cyanocobalamin) 2,000 Mcg Tab 2,000 Mcg PO DAILY Meloxicam 15 Mg Tab 15 Mg PO DAILY Norvasc (Amlodipine Besylate) 5 Mg Tab 5 Mg PO DAILY Spironolactone 25 Mg Tab 25 Mg PO DAILY Lisinopril 40 Mg Tab 40 Mg PO DAILY Review of Systems Except as stated in HPI: all other systems reviewed are Neg Physical Exam Narrative GENERAL: Well-nourished male in no acute distress SKIN: Warm and dry. HEAD: Atraumatic. Normocephalic. EYES: Pupils equal and round. No scleral icterus. No injection or drainage. ENT: No nasal bleeding or discharge. Mucous membranes pink and moist. NECK: Trachea midline. No JVD. CARDIOVASCULAR: Regular rate and rhythm. No murmur appreciated. RESPIRATORY: No accessory muscle use. Clear to auscultation. Breath sounds equal bilaterally. GASTROINTESTINAL: Abdomen soft, non-tender, nondistended. Hepatic and splenic margins not palpable. MUSCULOSKELETAL: No obvious deformities. Mild tenderness to palpation to the lumbar spine and right paravertebral musculature. 5 out of 5 muscle strength in lower extremities. NEUROLOGICAL: Awake and alert. No obvious cranial nerve deficits. Motor grossly within normal limits. Normal speech. PSYCHIATRIC: Appropriate mood and affect; insight and judgment normal. Data Data Last Documented VS Vital Signs Date Time Temp Pulse Resp B/P (MAP) Pulse Ox O2 Delivery O2 Flow Rate FiO2 09/15/17 14:08 97.4 85 18 186/80 (115) 100 Room Air Orders Orders Spine, Lumbar - Ltd (Ap & Lat) (09/15/17 ) Ed Discharge Order (09/15/17 17:21) [facility] Medical Decision Making Medical Screen Exam Complete: Yes Emergency Medical Condition: Yes Medical Record Reviewed: Yes Differential Diagnosis Lumbar strain, compression fracture, shingles, herniated nucleus pulposus Narrative Course Physical examination is reassuring. Given his age, x-ray of the lumbar spine has been ordered to rule out compression deformity. CONCLUSION: No acute lumbar spine abnormality is identified. 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 The patient will be discharged with Lidoderm patches and a short course of tramadol for breakthrough pain for what appears to be a lumbar strain. Diagnosis Primary Impression: Lumbar strain Qualified Codes: S39.012A - Strain of muscle, fascia and tendon of lower back , initial encounter Additional Instructions: Continue taking Aleve as needed. Take with meals. Lidoderm patches as needed. Tramadol for breakthrough severe pain. Do not drive or drink alcohol when taking this medication. Avoid strenuous activity or heavy lifting. Follow-up with primary care physician in one to 2 weeks. Return for any emergent medical conditions. Med/Other Pt SpecificInfo: Prescription(s) given Scripts Lidocaine Patch 12 HR (Lidocaine Patch 12 HR) 5 % Patch 1 PATCH TOPICAL DAILY Y for PAIN, #1 BOX 1 Refill Remove patch after 12 hours Prov: Sarah Hong DO 09/15/17 Tramadol (Tramadol) 50 Mg Tab 50 MG PO Q6H Y for PAIN, #15 TAB 0 Refills Prov: HongSarah DO 09/15/17 Disposition: 01 DISCHARGE HOME Condition: Stable Tristen Regan Sep 15, 2017 15:50
[2017-09-15] MEDS ORDERED: PEN VK (15:58)
[2017-09-15] MEDS ORDERED: ALEV220T14 PO (15:58)
[2017-09-15] MEDS ORDERED: ASPI81CH6 CHEW (15:58)
--- NOTE | 2017-09-15 17:14 | RADRPT ---
EXAM DATE/TIME: 09/15/2017 16:16 [facility] COMPARISON: No previous studies available for comparison. INDICATIONS : Lower back pain. No known injury. MEDICAL HISTORY : None. SURGICAL HISTORY : None. ENCOUNTER: Initial ACUITY: 1 week PAIN SCORE: 6/10 LOCATION: lumbar spine. FINDINGS: 3 views of the lumbar spine demonstrate 5 nonrib-bearing lumbar vertebral bodies. No fracture or comp ression deformity is identified. There is 3 mm of anterolisthesis of L5 on S1. Decreased disc height is present at all levels with bulky endplate osteophytes anteriorly. There is severe facet arthrosis at L4-L5 and L5-S1. Pelvic bones and soft tissues demonstrate no acute finding. 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 CONCLUSION: No acute lumbar spine abnormality is identified. There is degenerative disc disease at all lumbar lev els with severe facet arthrosis at L5-S1 resulting in grade 1 anterolisthesis. Claus Lui MD on September 15, 2017 at 17:09 Board Certified Radiologist. This report was verified electronically.
[2017-09-15] MEDS ORDERED: LIDO1PAD52 TOPICAL (17:21)
[2017-09-15] MEDS ORDERED: TRAM50TA PO (17:21)
== END 2017-09-15 17:51 | disposition home or self-care (01) ==
LOC: NEPK 14:07
DX: S39.012A Strain of muscle, fascia and tendon of lower back, initial encounter (principal); X58.XXXA Exposure to other specified factors, initial encounter
CPT/HCPCS: 72100; 99283